=== PATIENT | male | born 1960 | race Two or more races ===

== ENCOUNTER 2020-07-26 13:15 | Outpatient (CLI) | payer OTHER | END 2020-07-26 13:25 | disposition home or self-care (01) | LOC: RAD 13:15 | PROVIDERS: ATTEND Orthopaedic Surgery | DX: M25.552 Pain in left hip (principal) ==

== ENCOUNTER → 2021-04-10 | Outpatient (CLI) | payer OTHER | END | disposition home or self-care (01) | LOC: RAD 12:26 | PROVIDERS: ATTEND Orthopaedic Surgery | DX: S20.212A Contusion of left front wall of thorax, initial encounter (principal) ==

== ENCOUNTER 2022-03-21 14:27 | Outpatient (CLI) | payer OTHER | END 2022-03-21 14:37 | disposition home or self-care (01) | LOC: RAD 14:27 | PROVIDERS: ATTEND Orthopaedic Surgery | DX: S62.314A Displaced fracture of base of fourth metacarpal bone, right hand, initial encounter for closed fracture (principal); S62.612A Displaced fracture of proximal phalanx of right middle finger, initial encounter for closed fracture ==

== ENCOUNTER 2025-03-02 13:53 | Outpatient (CLI) | payer OTHER | END 2025-03-02 13:59 | disposition home or self-care (01) | LOC: RAD 13:53 | PROVIDERS: ATTEND Orthopaedic Surgery | DX: M25.531 Pain in right wrist (principal) ==